=== PATIENT | female | born 1975 | race Caucasian/White ===

== ENCOUNTER 2019-05-10 18:46 | Emergency (ER) | payer SELFPAY ==
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
[2019-05-10 19:23] LABS: URINE APPEARANCE SL CLOUDY; URINE BILIRUBIN NEGATIVE (NEGATIVE); URINE BLOOD MODERATE (NEGATIVE); URINE COLOR YELLOW; URINE GLUCOSE (UA) NEGATIVE (NEGATIVE); URINE KETONE NEGATIVE (NEGATIVE); URINE LEUKOCYTE ESTERASE MODERATE (NEGATIVE); URINE NITRITE NEGATIVE (NEGATIVE); URINE PROTEIN TRACE (NEGATIVE); URINE UROBILINOGEN 0.2 E.U./dL (0.20 - 1.00)
[2019-05-10 19:31] LABS: URINE BACTERIA 1+; URINE RBC 36 - 50 (NONE SEEN); URINE WBC 36 - 50 (0-2/hpf)
[2019-05-10] MEDS ORDERED: AZITHROMYCIN 500 MG TABLET PO ONE (20:00)
[2019-05-10] MEDS ORDERED: CEFTRIAXONE 250 MG VIAL IM ONE (20:00)
[2019-05-10] MEDS ORDERED: METRONIDAZOLE 250 MG TABLET PO ONE (20:16)
== END 2019-05-10 21:20 | disposition home or self-care (01) ==
LOC: ER 18:46
DX: T76.21XA Adult sexual abuse, suspected, initial encounter (principal); A59.01 Trichomonal vulvovaginitis; G40.909 Epilepsy, unspecified, not intractable, without status epilepticus; F17.210 Nicotine dependence, cigarettes, uncomplicated
CPT/HCPCS: 99285 ×2; 96372; 81001; Q0111; J0696; 87210